=== PATIENT | female | born 1995 | race Caucasian/White ===

== ENCOUNTER 2022-10-10 22:03 | Emergency (ER) | payer SELFPAY ==
[~2022-10-10] VITALS: Ht 162.6 cm; Wt 55.3 kg
--- NOTE | 2022-10-10 22:26 | NUR ---
PROVIDED PT URINE CUP; NOT ABLE TO URINATE AT THIS TIME. WILL F/U
--- NOTE | 2022-10-10 22:30 | NUR ---
AT [facility]
--- NOTE | 2022-10-10 22:50 | NUR ---
DEMAND MANAGER AT PT'S BEDSIDE
[2022-10-10] MEDS ORDERED: TDAP [DIPH/PERTUSSIS/TET] 0.5 ML VIAL IM ONE (23:00)
[2022-10-10] MEDS ORDERED: IBUPROFEN 600 MG TABLET PO ONE (23:00)
[2022-10-10 23:34] VITALS: BP 111/66
== END 2022-10-10 23:35 | disposition home or self-care (01) ==
LOC: ER 22:11
DX: S61.213A Laceration without foreign body of left middle finger without damage to nail, initial encounter (principal); W26.0XXA Contact with knife, initial encounter; Y93.89 Activity, other specified; Y92.89 Other specified places as the place of occurrence of the external cause; Y99.8 Other external cause status
CPT/HCPCS: 99283; 73130; A6403